=== PATIENT | female | born 1955 | race Caucasian/White ===

== ENCOUNTER 2017-03-14 10:59 | Inpatient (IN) | payer OTHER ==
[~2017-03-14] VITALS: Ht 152.4 cm; Wt 90.4 kg
--- NOTE | ~2017-03-14 | EKG ---
PATIENT: MARILIA ADAMS UNIT #: [id number] Ventricular Rate: 76 BPM Atrial Rate: 76 BPM P-R Interval: 184 ms QRS Duration: 88 ms Q-T Interval: 458 ms QTC Calculation(Bezet): 515 ms P [place]: 63 degrees Calculated R [place]: -20 degrees Calculated T [place]: 80 degrees Diagnosis Line: Normal sinus rhythm Diagnosis Line: Prolonged QT Diagnosis Line: Abnormal ECG Diagnosis Line: No previous ECGs available Diagnosis Line: Confirmed by MARY ZELAYA MD ([id number]) on Diagnosis Line: 03/15/2017 5:00:49 PM INTERPRETING MD: JONATHAN
--- NOTE | ~2017-03-14 | DS ---
Unit #: [id number] #: [id number] Patient: MARILIA ADAMS [id number] [address] [address] [id number] I MR#: [id number] NAME: MARILIA ADAMS. ROOM: 331 Age: 61 Sex: F Admission Date: 03/14/2017 : 1955 Discharge Date: Attending Physician: Kinza Eid M.D. Primary Care Physician: Nanda House M.D. DISCHARGE SUMMARY ADDENDUM Patient was not discharged on March 16 because blood cultures are growing positive. Final blood cultures grew MRSA. Repeat blood cultures are negative. Patient was seen by infectious disease. Source of infection still unknown. Echocardiogram negative. Repeat blood cultures negative. Infectious disease recommends daptomycin for 2 weeks IV. Patient refusing to have PICC line. She wants to come every day to get her IV daptomycin. I am going to arrange home health. manager account management is aware. Infectious disease is aware. Patient needs CBC, BMP and CK every Wednesday and call abnormal labs with Dr. Tello. Patient will be discharged home with home health. Follow with PCP in 1 week time. ADDENDUM TO THE DISCHARGE MEDICATIONS Patient will have daptomycin 500 mg IV daily. Stop date 03/30/2017. ADDITIONAL DISCHARGE DIAGNOSES 1. Acute kidney injury. 2. Possible acute tubular necrosis. NOTE: Creatinine today is 1.4. Discharge time taken is 31 minutes. Dictated by... Hermes Hickey/sravani TD: 03/19/2017 15:49 JOB #: [id number] Unit #: [id number] #: [id number] Patient: MARILIA ADAMS DISCHARGE SUMMARY Page 1 of 1 X Kinza Eid MD X DISCHARGE SUMMARY
--- NOTE | ~2017-03-14 | CR72 ---
[facility] A Service of [facility] & [facility] RADIOLOGY TEXT RESULTS PATIENT: MARILIA ADAMS LOCATION: [facility] 331- : 57 UNIT #: [id number] AGE: [address]: Kinza Eid MD SEX: F ORDER DR: [id number] [facility] [address] [facility]. [place], [place] [address] [id number] I MR#: [id number] Acc #: [id number] NAME: MARILIA ADAMS : 1955 SEX: F STUDY DATE/TIME: 03/14/2017 13:16 UNIT: [address] ROOM: [facility] STUDY DESCRIPTION: CR Chest Single View Portable Attending Physician: Kinza Eid M.D. Ordering Physician: Jhonny Bliss M.D. Primary Care Physician: Nanda House M.D. MEDICAL IMAGING REPORT This report is preliminary unless electronic signature is present EXAM Single view of the chest dated 03/14/2017. COMPARISON Chest 2 views dated 07/22/2011. HISTORY Nausea, hyperglycemia, shortness of air since last night. History of right breast cancer. TECHNIQUE Single frontal view of the chest was obtained. FINDINGS Poor inspiratory film does not demonstrate any acute cardiopulmonary disease. No patchy dense consolidation, pleural effusion or pneumothorax. Bilateral acromioclavicular joint arthritic changes. Dictated by... Kyrie Silva M.D. THIS IS AN ELECTRONICALLY VERIFIED REPORT Kyrie Silva M.D. at 03/17/2017 9:14 AM CPR/gz TD: 03/15/2017 07:59 JOB #: [id number] MEDICAL IMAGING REPORT Page 1 of 1 COPY
--- NOTE | ~2017-03-14 | ST ---
Unit #: [id number] #: [id number] Patient: MARILIA ADAMS [id number] [facility]. [address] [address] [id number] I MR#: [id number] NAME: MARILIA ADAMS. : 1955 SEX: F STUDY DATE/TIME: 03/15/2017 UNIT: C3A PCU ROOM: 331 STUDY DESCRIPTION: Stress test Attending Physician: Kinza Eid M.D. Primary Care Physician: Nanda House M.D. CARDIOLOGY REPORT REASON FOR TEST Shortness of breath and ventricular ectopy. PROCEDURE Baseline EKG - Normal sinus rhythm, rate of 76 beats per minute, low voltage, nonspecific ST-T wave abnormalities noted. QTc interval prolonged. Per protocol, 0.4 mg of Lexiscan was injected, followed by Cardiolite. During the infusion, the patient did experience shortness of breath, which was mild. Her primary complaint was that of headache, nausea and dry heaving. This resolved in the recovery period. She denied any complaints of chest pain. There were no ST segment changes suggestive of ischemia. There was no ectopy. The test was stopped secondary to protocol completion. FINDINGS 1. Negative EKG portion of Lexiscan Cardiolite. 2. No ST-T wave changes suggestive of ischemia. 3. Complaints of headache, nausea and dry heaving during the infusion period. This resolved in the recovery period. The patient denied any complaints of chest pain. She did have some mild shortness of breath. 4. No arrhythmias. 5. Please correlate with nuclear images. 6. 1. Dictated by... Ryan CasasPBinduRMichael for Gwendolyn Hurst M.D. LMW/db TD: 03/15/2017 12:16 JOB #: [id number] Unit #: [id number] #: [id number] Patient: MARILIA ADAMS CARDIOLOGY REPORT Page 1 of 1 X Negin Rasheed APRN CARDIOLOGY REPORT
--- NOTE | ~2017-03-14 | DS ---
Unit #: [id number] #: [id number] Patient: MARILIA ADAMS [id number] [address] [address] [id number] I MR#: [id number] NAME: MARILIA ADAMS. ROOM: 331 Age: 61 Sex: F Admission Date: 03/14/2017 : 1955 Discharge Date: Attending Physician: Kinza Eid M.D. Primary Care Physician: Nanda House M.D. DISCHARGE SUMMARY DISCHARGE DIAGNOSES 1. Abnormal stress test showing stress-induced ischemia, status post cardiac cath which shows mid left anterior descending 80%. 2. Enterococcus urinary tract infection. 3. Diabetes mellitus type 2, uncontrolled. 4. Chronic obstructive pulmonary disease. 5. Hypertension, uncontrolled. 6. Hyperlipidemia. 7. Chronic kidney disease stage 2. 8. Hypothyroidism. 9. Nephrolithiasis. 10. History of breast cancer, status post lumpectomy. Patient did not have chemotherapy and radiation according to history. 11. Acute kidney injury. 12. Hyperlipidemia. 13. Morbid obesity. CONSULTATION Dr. Wilson. PROCEDURES 1. Patient had cardiac cath which shows LAD proximal normal. Mid shows calcification with 80% stenosis. 2. Patient had a stress test which shows stress-induced ischemia. OTHER LAB DATA Glucose 106. Urine culture started growing Enterococcus species. Sodium 139, potassium 4.4, creatinine 1.5, INR 1.0. Blood cultures - Staphylococcus aureus, likely contamination. TSH 5.58, ALLERGIES NSAIDs, penicillin, hydroxyzine, morphine, codeine, oxycodone, ibuprofen, meperidine. DISCHARGE MEDICATIONS 1. Advair 500/50 Diskus, one inhalation b.i.d. 2. Gabapentin 300 p.o. daily in the morning and gabapentin 600 at bedtime. Unit #: [id number] #: [id number] Patient: MARILIA ADAMS 3. Wellbutrin XL 300 p.o. daily. 4. Januvia 100 daily. 5. Cetirizine 10 mg p.o. daily. 6. Atorvastatin 80 daily. 7. Fenofibrate 160 p.o. daily. 8. Lisinopril 5 mg daily. 9. Lantus 100 units subcu b.i.d. 10. Humalog 35 units subcu b.i.d. 11. NovoLog low dose sliding scale. 12. Fish oil 1000 mg p.o. daily. 13. Ranitidine 300 mg p.o. daily. 14. Allopurinol 100 daily. 15. Plavix 75 daily. 16. Baclofen 10 mg three times daily. 17. Synthroid 0.1 mf p.o. daily. 18. Imdur ER 30 mg p.o. daily. 19. Nitroglycerin 0.4 sublingual every 5 minutes p.r.n. chest pain. 20. Nitrofurantoin 50 p.o. b.i.d. HOSPITALIZATION COURSE 61-year-old admitted because of hyperglycemia. Abnormal EKG with stress-induced ischemia and stress test. Patient had a cardiac cath which shows mid LAD 80%. No stents placement. Patient will have medical management as per Dr. Wilson. Continue with medical management and follow with Dr. Hurst in six weeks time. Acute kidney injury, prerenal, currently stable. Follow with a BMP in one week time. Enterococcus UTI. Patient started on Levaquin. Patient will be discharged on nitrofurantoin. Staph aureus bacteremia. I am waiting on a blood culture before discharge. Diabetes mellitus type 2, uncontrolled. Increase her Lantus. I gave prescriptions. Waiting on complete blood culture report. If that is negative, patient will be discharged home. If not, I am going to repeat a blood culture and keep her here tonight. Dictated by... Hermes Hickey TD: 03/16/2017 11:20 JOB #: [id number] Unit #: [id number] #: [id number] Patient: MARILIA ADAMS Danita DISCHARGE SUMMARY Page 1 of 1 X Kinza Eid MD X DISCHARGE SUMMARY
--- NOTE | ~2017-03-14 | HP ---
Unit #: [id number] #: [id number] Patient: MARILIA ADAMS [id number] [address] [place], [place] [address] [id number] E MR#: [id number] NAME: MARILIA ADAMS ROOM: Age: 61 Sex: F Admission Date: 03/14/2017 : 1955 Attending Physician: Jhonny Bliss M.D. Primary Care Physician: Nanda House M.D. HISTORY AND PHYSICAL CHIEF COMPLAINT Hyperglycemia. HISTORY OF PRESENT ILLNESS The patient is a 61-year-old female with a past medical history of diabetes, hypertension, hyperlipidemia, hypothyroidism, COPD, nephrolithiasis, breast cancer, and chronic kidney disease, who presented to the emergency department for evaluation of the above. The patient states that she was in her usual state of health until the day prior to admission. She states that she was on her way to the [facility] for [employer] when she felt nauseous and weak similar to when blood sugar has been low in the past. She states that she got a soft drink and candy bar and then felt somewhat better. She returned home. She went to sleep. This morning around 3 a.m. she woke from sleep feeling "hot." She also felt like her legs were weak. She ate a sandwich, and the symptoms persisted. She did not check her blood sugar, but she states that the feeling was similar to when she has had low blood sugar in the past. She apparently called EMS. They checked her blood sugar. The patient does not recall what the blood sugar was. They told her to eat something. She did. She then went back to sleep. This morning she awoke with similar symptoms. Blood sugar at that time was in the 200s. She called EMS and was brought to the emergency room for further evaluation. Upon arrival in the emergency department, glucose was 343 on an Accu-Chek. Blood sugar was 353 on comprehensive metabolic panel. Urinalysis shows findings concerning for urinary tract infection. EKG was also noted to be abnormal with QTc of 495. CK-MB was elevated at 12.3. The patient denies any chest pain. The ER physician, Dr. Bliss, spoke with Dr. Galdamez, who agreed to see the patient in consultation regarding the cardiology-related issues. The patient states that she has never had a stress test and never had a cardiac catheterization. Regarding diabetes, the patient has had various insulin regimes. She has had a couple of different physicians in the past few months. Within the past week, her insulin regime was changed to 100 units of Lantus b.i.d., as well as Humalog with meals, 45 units with breakfast, 10 units with lunch, and 40 units with dinner. She states that her blood sugars are typically in the 100s. PAST MEDICAL HISTORY 1. Admission to [facility] June 21-2011, for uncontrolled diabetes. 2. Chronic obstructive pulmonary disease, not on home oxygen. 3. Diabetes with recent change to medications as described above. 4. Hypertension. Unit #: [id number] #: [id number] Patient: MARILIA ADAMS 5. Hyperlipidemia. 6. Chronic kidney disease followed by Dr. Babb. 7. Hypothyroidism. 8. Nephrolithiasis. 9. Breast cancer, status post lumpectomy. Patient has not had chemotherapy or radiation. PAST SURGICAL HISTORY 1. Hysterectomy. 2. Thyroidectomy. 3. Cystoscopy with left ureteral stone removal. 4. Right lumpectomy with lymph node dissection. SOCIAL HISTORY Patient quit smoking more than 30 years ago. She denies alcohol use. She lives with her . She walks with a cane intermittently. FAMILY HISTORY Notable for her mother having lung cancer. ALLERGIES Penicillin, hydroxyzine, meperidine, nonsteroidal antiinflammatory medications, morphine, codeine, oxycodone, ibuprofen. HOME MEDICATIONS 1. Prinivil. 2. Gabapentin. 3. Bupropion. 4. Black cohosh. 5. Triglide. 6. Ranitidine. 7. Advair 500/50. 8. Lantus. 9. Humalog. 10. Synthroid. 11. Zyrtec. 12. [place]-3. 13. Januvia. 14. Zyloprim. 15. Lasix. 16. Atorvastatin. 17. Baclofen. Home medications will need to be reviewed and verified. REVIEW OF SYSTEMS A complete review of systems is negative except as indicated in the HPI. The patient denies any fever. No cough or cold symptoms. No chest pain. No palpitations. No abdominal pain. She does report nausea but no vomiting. She denies any diarrhea. No urinary symptoms. PHYSICAL EXAMINATION VITAL SIGNS: Temperature is 98.7, pulse 84, respirations 12, blood pressure 187/87, and oxygen saturation 99% on room air. GENERAL: Patient is a female who is awake, alert, and in no acute distress. HEENT: Head is atraumatic. Mucous membranes are moist. NECK: Supple. Trachea is midline. Unit #: [id number] #: [id number] Patient: MARILIA ADAMS CARDIOVASCULAR: Regular rate and rhythm. LUNGS: Clear to auscultation bilaterally with no increased work of breathing. ABDOMEN: Soft and nontender with bowel sounds present in all four quadrants. EXTREMITIES: Nontender with no pedal edema. NEUROLOGIC: Patient is awake and alert. She follows commands. PSYCHIATRIC: Mood and affect are normal. Patient is cooperative. SKIN: Skin of examined areas is warm and dry. DIAGNOSTIC STUDIES LABORATORY: Troponin is less than 0.05. CK-MB 12.3. Complete blood count notable for hemoglobin and hematocrit of 11.2 and 32.9, respectively. Urinalysis notable for 3+ protein, greater than 1000 glucose, 2-5 red blood cells, 4+ bacteria, and no squamous cells. Comprehensive metabolic panel notable for sodium of 133 that corrects when glucose of 355 is accounted for, BUN and creatinine 29 and 1, respectively, albumin is 3.3. Lipase is 3.7. CARDIOLOGY: EKG shows QTc of 495. ASSESSMENT The patient is a 61-year-old female with: 1. Uncontrolled diabetes. The patient's glucose on comprehensive metabolic panel is 355. She received one liter of normal saline in the emergency department. 2. Urinary tract infection. The patient had a urine culture on December 05, 2006, that grew normal urogenital bryan and a urine culture from December 08, 2006, that showed no growth at 48 hours. She received Levaquin in the emergency department. 3. Abnormal EKG. QTc is 495. The patient's CK-MB was elevated at 12.3. Patient denies any chest pain. She has never had a cardiac workup and never had a stress test or cardiac catheterization. 4. Hypertension. 5. Hyperlipidemia. 6. Hypothyroidism. 7. Chronic obstructive pulmonary disease. 8. Nephrolithiasis. 9. Breast cancer, status post lumpectomy. 10. Chronic kidney disease followed by Dr. Babb. Patient's creatinine is 1 today. Baseline appears to be around 1. 11. Former smoker. PLAN 1. Admit for observation to intermediate level. 2. Normal saline at 75 mL/hour. 3. Advance to healthy heart, consistent carbohydrate diet as tolerated. 4. Hemoglobin A1c. 5. Low-dose sliding scale insulin with Accu-Cheks. 6. Restart home insulin regime. 7. Blood cultures x2. 8. Urine culture and sensitivity on urine in the lab. 9. Levaquin 750 mg IV daily. 10. Check CPK. 11. Consult Dr. Galdamez regarding abnormal EKG and elevated CK-MB. 12. Fasting lipid panel. 13. Serial cardiac enzymes. 14. EKG in the morning. Unit #: [id number] #: [id number] Patient: MARILIA ADAMS 15. TSH. 16. Repeat labs in the morning including CPK. 17. SCDs for DVT prophylaxis. 18. Additional workup and consultants based on above. 1. Dictated by Hermes Vera/harry TD: 03/14/2017 15:33 JOB #: [id number] HISTORY AND PHYSICAL Page 1 of 1 X Clari Marrufo MD X HISTORY AND PHYSICAL
--- NOTE | ~2017-03-14 | XA166 ---
[facility] A Service of [facility] & [facility] RADIOLOGY TEXT RESULTS PATIENT: MARILIA ADAMS LOCATION: [facility] 331- : 56 UNIT #: [id number] AGE: [address]: Kinza Eid MD SEX: F ORDER DR: [id number] [facility] [address] [facility]. [place], [place] [address] [id number] MR#: [id number] Acc #: [id number] NAME: MARILIA ADAMS. : 1955 SEX: F STUDY DATE/TIME: 03/19/2017 16:52 UNIT: [address] ROOM: [facility] STUDY DESCRIPTION: XA PICC Line Placement WO Port Attending Physician: Kinza Eid M.D. Ordering Physician: Kinza Eid M.D. Primary Care Physician: Nanda House M.D. MEDICAL IMAGING REPORT This report is preliminary unless electronic signature is present EXAM PICC line insertion, 03/19/2017. HISTORY IV access needed for antibiotic therapy. PRE-PROCEDURE The procedure was explained to the patient and/or patient telecommunications sales representative including risks, benefits, potential complications and potential for alternative forms of treatment. Informed consent was obtained, and prior to initiating the procedure a formal timeout procedure was performed. PROCEDURE Using full standard sterile barrier technique, including caps, gowns, gloves, masks, as well as sterile skin preparation and standard sterile draping, the right arm was prepped and draped in the usual fashion, and real-time sterile ultrasound guidance was used to localize an arm vein and to confirm vessel patency. A hard copy ultrasound image was recorded. After local anesthesia with 1% Xylocaine, the vein was punctured using real-time sterile ultrasound guidance, and an 0.018 guidewire was advanced into the superior vena cava, using fluoroscopic guidance. A 4-[place]ican single-lumen PICC was then measured and deployed with the tip positioned in the superior vena cava. The position of the line was documented with a radiographic image. The line was secured in place with an adhesive dressing and an antibiotic patch was applied. Total fluoro time was 0.1 minutes. Single fluoroscopic spot image obtained. IMPRESSION Successful placement of a 4-[place] single-lumen PowerPICC via the right arm under ultrasound and fluoroscopic guidance. The tip of the PICC is in good position in the superior vena cava. [facility]. [facility] A Service of [facility] RADIOLOGY TEXT RESULTS PATIENT: MARILIA ADAMS LOCATION: [place] [address]- : 57 UNIT #: [id number] AGE: [address]: Kinza Eid MD SEX: F ORDER DR: A single fluoroscopic spot image was obtained. Dictated by... Michele Melendez M.D. THIS IS AN ELECTRONICALLY VERIFIED REPORT Michele Melendez M.D. at 04/01/2017 2:13 PM CELESTE/carri TD: 03/29/2017 15:39 JOB #: [id number] MEDICAL IMAGING REPORT Page 1 of 1 COPY
--- NOTE | ~2017-03-14 | TH ---
Unit #: [id number] #: [id number] Patient: MARILIA ADAMS [id number] [address] [address] [id number] I MR#: [id number] NAME: MARILIA ADAMS. : 1955 SEX: F STUDY DATE/TIME: 03/15/2017 UNIT: C3A U ROOM: 331 STUDY DESCRIPTION: Attending Physician: Kinza Eid M.D. Primary Care Physician: Nanda House M.D. CARDIOLOGY REPORT EXAM Lexiscan Cardiolite stress test, nuclear portion. PROCEDURE Using technetium 99m labeled Cardiolite, rest and stress SPECT images were obtained. Multiple SPECT images were obtained in various views including horizontal and vertical long axis and short axis views of the left ventricle. Images were obtained by gated SPECT method. The patient was administered 9.07 mCi of Cardiolite at rest. The patient was administered 31.8 mCi of Cardiolite after Lexiscan infusion was completed. On the stress images, there is a xljjn-zp-vdzber sized area of moderate decreased isotope activity anteriorly. The rest images show normal perfusion. Comparing rest and stress images, there is a [id number]-nqgzdh sized area of stress-induced ischemia involving the anterior wall of the left ventricle. The left ventricular ejection fraction is calculated to be 59%. There is no focal wall motion abnormality seen. CONCLUSION 1. Suspicion for stress-induced ischemia involving the anterior wall of the left ventricle. 2. The left ventricular ejection fraction is calculated to be 59%. 3. There is no focal wall motion abnormality seen. 4. Abnormal Lexiscan Cardiolite stress test suspicious for coronary artery disease. Clinical correlation is requested. Dictated by... Hermes Jha TD: 03/15/2017 15:50 JOB #: [id number] Unit #: [id number] #: [id number] Patient: MARILIA ADAMS CARDIOLOGY REPORT Page 1 of 1 X Gwendolyn Hurst MD <ELECTRONICALLY SIGNED> 04/08/17 1524 CARDIOLOGY REPORT
--- NOTE | ~2017-03-14 | EKG ---
PATIENT: MARILIA ADAMS UNIT #: [id number] Ventricular Rate: 72 BPM Atrial Rate: 72 BPM P-R Interval: 188 ms QRS Duration: 84 ms Q-T Interval: 456 ms QTC Calculation(Bezet): 499 ms P [place]: 57 degrees Calculated R [place]: -22 degrees Calculated T [place]: 66 degrees Diagnosis Line: Normal sinus rhythm Diagnosis Line: Nonspecific T wave abnormality Diagnosis Line: Prolonged QT Diagnosis Line: Abnormal ECG Diagnosis Line: When compared with ECG of 15-MAR-2017 05:50, Diagnosis Line: No significant change was found Diagnosis Line: Confirmed by JAMIE OWENS MD ([id number]) on 03/17/2017 Diagnosis Line: 7:11:01 PM INTERPRETING MD: GRACIELA CARDENAS
--- NOTE | ~2017-03-14 | EKG ---
PATIENT: MARILIA ADAMS UNIT #: [id number] Ventricular Rate: 73 BPM Atrial Rate: 73 BPM P-R Interval: 188 ms QRS Duration: 82 ms Q-T Interval: 464 ms QTC Calculation(Bezet): 511 ms P [place]: 64 degrees Calculated R [place]: -25 degrees Calculated T [place]: 65 degrees Diagnosis Line: Normal sinus rhythm Diagnosis Line: Prolonged QT Diagnosis Line: Nonspecific ST and T wave abnormality Diagnosis Line: Abnormal ECG Diagnosis Line: When compared with ECG of 14-MAR-2017 11:30, Diagnosis Line: (unconfirmed) Diagnosis Line: No significant change was found Diagnosis Line: Confirmed by JAMIE OWENS MD ([id number]) on 03/15/2017 Diagnosis Line: 7:55:44 PM INTERPRETING MD: GRACIELA CARDENAS
--- NOTE | ~2017-03-14 | A ---
[facility] Nutrition Therapy DATE: 03/15/17 Patient: MARILIA ADAMS Physician: JAG Address: [address] Room/Bed: [address] [place] [address], Zip: [place] [address] Admit Date: 03/14/17 Date of : [birth year] Height: 5 0 Weight: 189 85.8 NUTRITIONAL ASSESSMENT: REASON: RN REQUEST TO SEE RE: DM EDUCATION RD PROVIDED WRITTEN AND VERBAL CC DIET EDUCATION. RD EMPHASIZED IMPORTANCE OF CONSUMING 3 BALANCED MEALS DAILY + LIMIT SUGAR-SWEETENED BEVERAGES. PT REPORTS LOVING VEGETABLES AND DRINKS WATER WITH CRYSTAL LIGHT. PT WILLING TO DRINK PLAIN WATER (AND WATER WITH LEMON) ADD ANOTHER MEAL TO HER DAY. PT DEMONSTRATED UNDERSTANDING OF THE TOPIC. PT REPORTED NO DIET QUESTIONS AT THIS TIME. RD TO REMAIN AVAILABLE. RECOMMENDATIONS: 1. ENCOURAGE COMPLIANCE OF CURRENT DIET ORDER-CC DIET RD WILL F/U PER PROTOCOL Respectfully, Caitlyn Canseco RD, LD Food and Nutritional Services [facility] cc: client file
--- NOTE | ~2017-03-14 | CO ---
Unit #: [id number] #: [id number] Patient: MARILIA ADAMS [id number] [address] [place], [place] [address] [id number] MR#: [id number] NAME: MARILIA ADAMS. ROOM: 331 Age: 61 Sex: F Admission Date: 03/14/2017 : 1955 Attending Physician: Kinza Eid M.D. Primary Care Physician: Nanda House M.D. CONSULTATION REPORT REASON FOR CONSULT Abnormal EKG and elevated CK MB. HISTORY OF PRESENT ILLNESS This is a pleasant 61-year-old female with a past medical history of hypertension, hyperlipidemia, poorly controlled diabetes mellitus, hypothyroidism, COPD, nephrolithiasis, breast cancer status post lobectomy, CKD, tobacco abuse, reformed, and family history of premature coronary artery disease. Other than a Lexiscan Cardiolite in the remote past, the patient denies any recent cardiac workup. She denies any complaints of angina and at present there are no symptoms suggestive of heart failure. The patient tells me she was in her normal state of health yesterday but reports she has been having some issues with her blood sugars being labile. She states yesterday she was having some problems with nausea, feeling weak and sweaty and then her blood sugars were running low. She states they came up. She went ahead and went to [employer] with her friends and was out until late in the evening. Patient did report she drank a Mountain Dew and a candy bar and felt better. She says when she got home from [facility] about 1:00 in the morning, she went to bed and she awoke very sweaty, felt very weak, could barely walk, stumbled into the kitchen to get something to eat and EMS was called. When they arrived, her blood sugar was noted to be in the 130s. She refused going to the hospital at that time and went back to bed. The patient stated in the morning she awoke with similar symptoms. Blood sugar at that time was 225 but she did feel very nauseated with some emesis and weakness. She called her daughter and the daughter told her to call EMS. She has been brought in for evaluation for that reason. Upon arrival in the ER, her sugar was noted to be in the 300 range. Urinalysis showed findings suggestive of a urinary tract infection. An EKG was performed which showed normal sinus rhythm, rate of 77 beats per minute. QTC interval 495 msec, no acute ischemic change. Point of care troponins were negative. CK MB was elevated at 12.3. Again, the patient denies any complaints of chest pain. She denies any dyspnea on exertion. She is pretty active at home. PAST MEDICAL HISTORY 1. Hypertension. 2. Hyperlipidemia. 3. Diabetes mellitus, poorly controlled, with a hemoglobin A1c this admission of 15.4. 4. COPD. Unit #: [id number] #: [id number] Patient: MARILIA ADAMS 5. Nephrolithiasis. 6. Breast cancer, status post lumpectomy in the past. 7. Chronic kidney disease, followed by Dr. Babb. 8. Hypothyroidism. PAST SURGICAL HISTORY 1. Thyroidectomy. 2. Hysterectomy. 3. Right lumpectomy with lymph node dissection. 4. Cystoscopy with left ureteral stone removal. SOCIAL HISTORY The patient is a reformed smoker. She denies illicit drugs or alcohol. She is recently . She says that she walks with a cane on occasion. ALLERGIES Penicillin, hydroxyzine, meperidine, NSAIDs, morphine, codeine, oxycodone and ibuprofen. HOME MEDICATIONS 1. Prinivil 5 mg p.o. daily. 2. Gabapentin 300 mg p.o. daily. 3. Bupropion 300 mg p.o. daily. 4. Black Cohosh 540 mg p.o. daily. 5. Fenofibrate 160 mg p.o. daily. 6. Ranitidine 300 mg p.o. daily p.r.n. 7. Advair 500/50, one disk inhalation as needed. 8. Lantus 100 units subcu every morning. 9. Lantus 100 units subcu at bedtime. 10. Humalog 10 units subcu every morning. 11. Synthroid 0.2 mg p.o. daily. 12. Gabapentin 600 mg p.o. at bedtime. 13. Zyrtec 10 mg p.o. daily. 14. [place]-3 fatty acids, 1 g p.o. daily. 15. Januvia 100 mg p.o. daily. 16. Zyloprim 100 mg p.o. daily. 17. Lasix 20 mg p.o. daily. 18. Atorvastatin 80 mg p.o. daily. 19. Baclofen 10 mg p.o. t.i.d. p.r.n. REVIEW OF SYSTEMS A 10-point review of systems was completed and was negative except for what was stated above in the HPI. PHYSICAL EXAM VITAL SIGNS: Temperature 98.3, respiratory rate 18, pulse 74, blood pressure 148/76 to 165/88. GENERAL: This is a pleasant 61-year-old female in no acute distress. HEENT: Head is atraumatic normocephalic. Pupils are equal and round. NECK: Supple. Trachea is midline. No lymphadenopathy. No carotid bruit. CARDIOVASCULAR: S1, S2. Regular rate and rhythm. No murmur, gallop or rub. LUNGS: Clear to auscultation. No adventitious breath sounds. No rales, no rhonchi, no wheezes. ABDOMEN: Soft, nontender, nondistended. Bowel sounds are present. EXTREMITIES: Pulses are palpable. No clubbing, cyanosis or edema. Unit #: [id number] #: [id number] Patient: MARILIA ADAMS NEURO: The patient is awake, alert. Follows commands. She moves all extremities equally. DIAGNOSTIC STUDIES LABORATORY: Sodium 139, potassium 4.2, chloride 108, CO2 24, BUN 23, creatinine 1.2, glucose 109, hemoglobin 9.9, hematocrit 28.5, WBC 7.7, platelet count 196. Hemoglobin A1c is 15.4, TSH is 5.8. Urinalysis showed 3+ protein, 1+ blood, 4+ bacteria. Blood cultures are growing Enterococcus. Troponin was less than 0.03 and 0.05. EKG shows normal sinus rhythm, rate of 73 beats per minute. QTC interval of 511 msec. No acute ischemic change. The patient has had QTC prolongation according to review of prior records. Chest x-ray shows poor inspiratory film. No acute cardiopulmonary disease. FAMILY HISTORY Family history of coronary artery disease in her father with an WA in the past. IMPRESSION 1. Admitted for weakness. 2. Poorly controlled blood sugar which are labile with a hemoglobin A1c of 15.4. Patient reports that PCP has been adjusting her blood sugar medications. 3. Abnormal EKG with QTC prolongation which, upon review of prior EKGs, has been consistent since about 2006. 4. Urinary tract infection, positive for Enterococcus. 5. Hypertension. 6. Hyperlipidemia. 7. Hypothyroidism. 8. COPD. 9. Chronic kidney disease. 10. History of breast cancer, status post lumpectomy. 11. Reformed tobacco abuse. 12. Ventricular bigeminy. PLAN 1. We have been asked to see the patient secondary to abnormal EKG and increased CK MB. Her QTC interval appears to be about 495 msec. I have reviewed prior EKGs since and it appears she has had a history of QTC prolongation. Her medications have been reviewed and I don't see any obvious QTC prolongation inducing agents. 2. She currently has no signs and symptoms of angina and no overt congestive heart failure. The patient had some episodes of ventricular bigeminy. Therefore, at this time, will plan to go ahead and proceed with Lexiscan Cardiolite today as well as a 2D echocardiogram to assess left ventricular systolic function and for any valvular abnormality. If her tests are negative, she can be discharged from a cardiac standpoint. further recommendations pending Dr. Hurst's assessment. Unit #: [id number] #: [id number] Patient: MARILIA ADAMS Dictated by... Danita Casas.P.RBinduNBindu for Gwendolyn Hurst M.D. LMW/df TD: 03/16/2017 11:43 JOB #: [id number] CONSULTATION REPORT Page 1 of 1 X Negin Rasheed APRN X CONSULTATION REPORT
[~2017-03-14 10:59] MED LIST: ADALATCC PO; ADVAIR 500-501 EACH IH; ALBUTEROL17 GM INH; AVANDAMET 4 MG/1 TAB PO; BLACK COHOSH PO; BLACK COHOSH540 MG PO; BUDEPRION XL300 MG PO; CIPRO PO; CRANBERRY PO; DARVOCET-N 1001 TAB PO; GABAPENTIN300 MG PO; HUMALOG100 UNIT/1 SUBQ; LANTUS100 U/ML INJ; LANTUS100 U/ML SUBQ; LEVAQUIN PO; LEVOTHROID175 MCG PO; LISINOPRIL PO; NASACORT AQ16.5 GM; PHENERGAN25 M1 PO; PRINIVIL10 MG PO; PROAIR INH; RANITIDINE HCL150 M1 PO; SINGULAIR PO; TETRACYCLINE PO; TRICOR PO; TRIGLIDE160 M1 PO; UROCIT K PO; ZANTAC PO; ZYLOPRIM PO
[2017-03-14 11:48] LABS: URINE SOURCE CLEAN CATCH
[2017-03-14 11:57] LABS: POC - CKMB 12.3 ng/mL (0.0-7.9); POC - TROPONIN <0.05 ng/mL (<=0.05)
[2017-03-14 11:58] LABS: BASOPHIL# 0.1 X10e3 (0-0.3); BASOPHIL% 0.9 % (0-2.5); EOSINOPHIL# 0.3 X10e3 (0-0.7); HEMATOCRIT 32.9 % (35.0-45.0); HEMOGLOBIN 11.2 gm/dL (12.0-16.0); LYMPHOCYTE# 1.3 X10e3 (1.0-3.5); MEAN CELL VOLUME 87.4 FL (83-96); MEAN CORPUSCULAR HEMOGLOBIN 29.7 PG (28-34); MEAN PLATELET VOLUME 8.3 FL (6.5-11.5); MONOCYTE# 0.3 X10e3 (0-1.0); MONOCYTE% 5.2 % (3.0-12.0); NEUTROPHIL# 3.9 X10e3 (1.5-7.1); NEUTROPHIL% 66.9 % (40-75); PLATELET COUNT 221 X10e3 (140-420); RED BLOOD COUNT 3.77 X10e (3.90-5.30); RED CELL DISTRIBUTION WIDTH 13.7 % (11.0-15.5); WHITE BLOOD COUNT 5.9 X10e3 (4.0-10.5)
[2017-03-14 12:02] LABS: DIFF IND NO
[2017-03-14 12:07] LABS: URINE APPEARANCE CLEAR; URINE BILIRUBIN NEG (NEG); URINE BLOOD 1+ (NEG); URINE COLOR YELLOW; URINE GLUCOSE >1000 MG/DL (NEG); URINE KETONE NEG (NEG); URINE LEUKOCYTE ESTERASE NEG (NEG); URINE NITRATE NEG (NEG); URINE PROTEIN 3+ (NEG); URINE SPECIFIC GRAVITY 1.018 (1.003-1.035); URINE UROBILINOGEN 0.2 MG/DL (NEG)
[2017-03-14 12:10] LABS: CULTURE INDICATED? YES; U HYALINE CASTS AUWI 0-2 /[LPF]; URINE BACTERIA AUWI 4+ (NEGATIVE); URINE SQUAMOUS EPITHELIAL CELL NONE SEEN /[HPF]; UWBCS1 AUWI 0-2 (0-5)
[2017-03-14 12:21] LABS: ALBUMIN SERUM 3.3 g/dL (3.5-5.0); BILIRUBIN, DIRECT 0.1 mg/dL (0.0-0.2); BILIRUBIN,INDIRECT 0.4 mg/dL (0.0-0.9); BILIRUBIN,TOTAL 0.5 mg/dL (0.2-2.0); CALCIUM SERUM 8.7 mg/dL (8.4-10.2); GLOM FILT RATE Estimated 61.2 mL/min (>60); POTASSIUM 4.4 mmol/L (3.5-5.1); PROTEIN TOTAL SERUM 6.6 g/dL (6.0-8.3)
[2017-03-14] MEDS ORDERED: SYNTHROID0.2 MG PO (13:03)
[2017-03-14] MEDS ORDERED: GABAPENTIN300 MG PO (13:05)
[2017-03-14] MEDS ORDERED: ZYRTEC10 M1 PO (13:06)
[2017-03-14] MEDS ORDERED: OMEGA 3 1,0001 EACH PO (13:08)
[2017-03-14] MEDS ORDERED: JANUVIA PO (13:09)
[2017-03-14] MEDS ORDERED: ZYLOPRIM100 MG PO (13:09)
[2017-03-14] MEDS ORDERED: LASIX20 MG PO (13:10)
[2017-03-14] MEDS ORDERED: ATORVASTATIN CA80 MG PO (13:10)
[2017-03-14] MEDS ORDERED: LIORESAL10 MG PO (13:11)
[2017-03-14 13:34] LABS: POC - CKMB 10.7 ng/mL (0.0-7.9); POC - TROPONIN <0.05 ng/mL (<=0.05)
[2017-03-14 20:38] LABS: %MB 4.4 % (0.0-4.0); MB 11.2 ng/ml
[2017-03-15 02:22] LABS: %MB 3.8 % (0.0-4.0); MB 9.7 ng/ml
[2017-03-15 05:40] LABS: BASOPHIL# 0.1 X10e3 (0-0.3); BASOPHIL% 0.8 % (0-2.5); EOSINOPHIL# 0.4 X10e3 (0-0.7); EOSINOPHIL% 4.6 % (0.0-7.0); HEMATOCRIT 28.5 % (35.0-45.0); HEMOGLOBIN 9.9 gm/dL (12.0-16.0); LYMPHOCYTE# 2.3 X10e3 (1.0-3.5); LYMPHOCYTE% 30.6 % (17.0-45.0); MEAN CELL VOLUME 86.7 FL (83-96); MEAN CORPUSCULAR HEMOGLOBIN 30.1 PG (28-34); MEAN CORPUSCULAR HGB CONC 34.7 g/dL (30-36); MONOCYTE# 0.4 X10e3 (0-1.0); MONOCYTE% 5.8 % (3.0-12.0); NEUTROPHIL# 4.5 X10e3 (1.5-7.1); NEUTROPHIL% 58.2 % (40-75); PLATELET COUNT 196 X10e3 (140-420); RED BLOOD COUNT 3.28 X10e (3.90-5.30); RED CELL DISTRIBUTION WIDTH 13.6 % (11.0-15.5); WHITE BLOOD COUNT 7.7 X10e3 (4.0-10.5)
[2017-03-15 05:42] LABS: DIFF IND NO
[2017-03-15 06:08] LABS: BUN/CREATININE RATIO 19.16; CALCIUM SERUM 8.5 mg/dL (8.4-10.2); CREATININE SERUM 1.2 mg/dL (0.6-1.4); GLOM FILT RATE Estimated 49.1 mL/min (>60); POTASSIUM 4.2 mmol/L (3.5-5.1)
[2017-03-16 06:05] LABS: HEMATOCRIT 29.8 % (35.0-45.0); HEMOGLOBIN 10.2 gm/dL (12.0-16.0); MEAN CORPUSCULAR HEMOGLOBIN 29.9 PG (28-34); MEAN CORPUSCULAR HGB CONC 34.3 g/dL (30-36); MEAN PLATELET VOLUME 8.1 FL (6.5-11.5); RED BLOOD COUNT 3.42 X10e (3.90-5.30); RED CELL DISTRIBUTION WIDTH 13.6 % (11.0-15.5); WHITE BLOOD COUNT 6.1 X10e3 (4.0-10.5)
[2017-03-16 06:18] LABS: PARTIAL THROMBOPLASTIN TIME 22.2 SECONDS (23.5-31.3)
[2017-03-16 06:48] LABS: BUN/CREATININE RATIO 23.33; CALCIUM SERUM 8.9 mg/dL (8.4-10.2); CREATININE SERUM 1.5 mg/dL (0.6-1.4); GLOM FILT RATE Estimated 37.5 mL/min (>60); POTASSIUM 4.4 mmol/L (3.5-5.1)
[2017-03-17 12:31] LABS: HEMATOCRIT 28.6 % (35.0-45.0); HEMOGLOBIN 9.6 gm/dL (12.0-16.0); MEAN CELL VOLUME 86.8 FL (83-96); MEAN CORPUSCULAR HEMOGLOBIN 29.3 PG (28-34); MEAN CORPUSCULAR HGB CONC 33.7 g/dL (30-36); MEAN PLATELET VOLUME 8.2 FL (6.5-11.5); RED BLOOD COUNT 3.3 X10e (3.90-5.30); RED CELL DISTRIBUTION WIDTH 13.9 % (11.0-15.5); WHITE BLOOD COUNT 5.7 X10e3 (4.0-10.5)
[2017-03-17 13:48] LABS: BUN/CREATININE RATIO 27.85; CREATININE SERUM 1.4 mg/dL (0.6-1.4); GLOM FILT RATE Estimated 40.7 mL/min (>60); POTASSIUM 4.8 mmol/L (3.5-5.1)
[2017-03-18 05:19] LABS: HEMATOCRIT 28.4 % (35.0-45.0); HEMOGLOBIN 9.6 gm/dL (12.0-16.0); MEAN CELL VOLUME 88.2 FL (83-96); MEAN CORPUSCULAR HEMOGLOBIN 29.9 PG (28-34); MEAN CORPUSCULAR HGB CONC 33.9 g/dL (30-36); MEAN PLATELET VOLUME 8.6 FL (6.5-11.5); RED BLOOD COUNT 3.22 X10e (3.90-5.30); RED CELL DISTRIBUTION WIDTH 13.6 % (11.0-15.5); WHITE BLOOD COUNT 6.3 X10e3 (4.0-10.5)
[2017-03-18 05:50] LABS: BUN/CREATININE RATIO 26.25; CREATININE SERUM 1.6 mg/dL (0.6-1.4); GLOM FILT RATE Estimated 34.7 mL/min (>60); POTASSIUM 4.7 mmol/L (3.5-5.1)
[2017-03-19 05:46] LABS: HEMATOCRIT 28.9 % (35.0-45.0); HEMOGLOBIN 9.7 gm/dL (12.0-16.0); MEAN CELL VOLUME 87.1 FL (83-96); MEAN CORPUSCULAR HEMOGLOBIN 29.3 PG (28-34); MEAN CORPUSCULAR HGB CONC 33.6 g/dL (30-36); MEAN PLATELET VOLUME 8.8 FL (6.5-11.5); RED BLOOD COUNT 3.32 X10e (3.90-5.30); RED CELL DISTRIBUTION WIDTH 13.9 % (11.0-15.5); WHITE BLOOD COUNT 5.8 X10e3 (4.0-10.5)
[2017-03-19 06:30] LABS: BUN/CREATININE RATIO 29.28; CREATININE SERUM 1.4 mg/dL (0.6-1.4); GLOM FILT RATE Estimated 40.7 mL/min (>60); POTASSIUM 4.6 mmol/L (3.5-5.1)
[2017-03-19] MEDS ORDERED: COREG3.125 M1 PO (14:39)
[2017-03-19] MEDS ORDERED: NOVOLOG100 U/ML (14:46)
[2017-03-19] MEDS ORDERED: IMDUR-ER30 M1 PO (14:48)
[2017-03-19] MEDS ORDERED: CLOPIDOGREL75 MG PO (14:48)
[2017-03-19] MEDS ORDERED: NITROGLYCERIN0.4 MG SL (14:50)
[2017-03-19] MEDS ORDERED: CUBICIN RF500 MG IV (14:51)
== END 2017-03-19 17:41 | disposition home health service (06) | DRG 286 ==
LOC: CED 10:59 → C3A PCU 14:15 → CED 14:15 → C3A PCU 14:15 → CEDOF 14:15 → CED 15:57 → CEDOF 15:57 → C3A PCU 15:57 → CEDOF 18:15 → C3A PCU 03-15 07:30
PROVIDERS: Emergency Medicine; Family Medicine; Internal Medicine; Nurse Practitioner
PROC: B24BZZZ Ultrasonography of Heart with Aorta (ICD-10-PCS; 2017-03-15)
PROC: 4A023N7 Measurement of Cardiac Sampling and Pressure, Left Heart, Percutaneous Approach (ICD-10-PCS; principal; 2017-03-16)
PROC: B215YZZ Fluoroscopy of Left Heart using Other Contrast (ICD-10-PCS; 2017-03-16)
PROC: B211YZZ Fluoroscopy of Multiple Coronary Arteries using Other Contrast (ICD-10-PCS; 2017-03-16)
DX: I25.10 Atherosclerotic heart disease of native coronary artery without angina pectoris (principal); N17.0 Acute kidney failure with tubular necrosis; N39.0 Urinary tract infection, site not specified; Z68.41 Body mass index [BMI] 40.0-44.9, adult; R94.31 Abnormal electrocardiogram [ECG] [EKG]; E11.65 Type 2 diabetes mellitus with hyperglycemia; E11.22 Type 2 diabetes mellitus with diabetic chronic kidney disease; Z79.4 Long term (current) use of insulin; B95.2 Enterococcus as the cause of diseases classified elsewhere; I99.8 Other disorder of circulatory system; R94.39 Abnormal result of other cardiovascular function study; J44.9 Chronic obstructive pulmonary disease, unspecified; I12.9 Hypertensive chronic kidney disease with stage 1 through stage 4 chronic kidney disease, or unspecified chronic kidney disease; N18.2 Chronic kidney disease, stage 2 (mild); E78.5 Hyperlipidemia, unspecified; E89.0 Postprocedural hypothyroidism; N20.0 Calculus of kidney; E66.01 Morbid (severe) obesity due to excess calories; B95.62 Methicillin resistant Staphylococcus aureus infection as the cause of diseases classified elsewhere; Z90.710 Acquired absence of both cervix and uterus; Z87.891 Personal history of nicotine dependence; R00.8 Other abnormalities of heart beat; Z80.1 Family history of malignant neoplasm of trachea, bronchus and lung; Z85.3 Personal history of malignant neoplasm of breast; Z88.6 Allergy status to analgesic agent; Z88.0 Allergy status to penicillin; Z88.5 Allergy status to narcotic agent
CPT/HCPCS: 36415; 71010; 76937; 77001; 78452; 80048; 80061; 80076; 81003; 82550; 82553; 82947; 83036; 83690; 84443; 84484; 85025; 85027; 85610; 85730; 87040; 87077; 87086; 87088; 87186; 93005; 93017; 93306; 94760; 96365; 96375; 99152; 99153; 99285; A9500; C1751; C1769; C1887; C1894; J0878; J1642; J1644; J1815; J1956; J2250; J2405; J2785; J3010; J3370